=== PATIENT | male | born 1970 | race American Indian/Alaskan Native ===

== ENCOUNTER 2017-08-04 09:24 | Emergency (ER) | payer OTHER ==
--- NOTE | 2017-08-04 10:12 | ED PDOC ---
Arrival/HPI - General Historian: Patient, Spouse - History of Present Illness Time/Duration: < week Symptom Onset: Gradual Symptom Course: Worsening Quality: Stabbing Context: Sitting, Standing - General Chief Complaint: GI Problem Time Seen by Provider: 08/04/17 09:30 - History of Present Illness Narrative History of Present Illness (Text): 08/04/17 10:08 patient is a 47M with a PMH of COPD, GERD, Sciatica comes to the ED for three days of R. leg pain and bloody emesis. States that the leg pain started after he fell off the bed. He was able to ambulate after the injury and went to work the next day. He states the pain is similar to the pain he has when his sciatica is bothering him. Patient has also been complaining of abdominal pain accompanied by diarrhea and bloody emesis this morning. Patient states that the vomitus was first bloody, then yellow then follow by streaks of blood. Patient reports feeling fatigue as well as an episode of chest pain at prior to coming. No SOB. Denies any fever or chills. (James Wilks) Past Medical History - Provider Review Nursing Documentation Reviewed: Yes - Cardiac Hx Hypertension: Yes - Pulmonary Hx Respiratory Disorders: No - Neurological Hx Neurological Disorder: No - HEENT Hx HEENT Disorder: No - Renal Hx Renal Disorder: No - Endocrine/Metabolic Hx Endocrine Disorders: No - Hematological/Oncological Hx Blood Disorders: No - Integumentary Hx Dermatological Disorder: No - Musculoskeletal/Rheumatological Hx Musculoskeletal Disorders: Yes Other/Comment: sciatic nerve - Gastrointestinal Hx Gastrointestinal Disorders: No - Genitourinary/Gynecological Hx Genitourinary Disorders: No - Psychiatric Hx Psychophysiologic Disorder: No Hx Substance Use: No - Surgical History Other/Comment: right index finger amputee. Family/Social History - Physician Review Nursing Documentation Reviewed: Yes Family/Social History: Unknown Family HX Smoking Status: Current Some Days Smoker Hx Alcohol Use: No Hx Substance Use: No Allergies/Home Meds Allergies/Adverse Reactions: Allergies No Known Allergies Allergy (Verified 08/04/17 09:38) Home Medications: Home Meds Medication Instructions Recorded Confirmed Ibuprofen [Motrin Tab] 800 mg PO BID 08/04/17 08/04/17 Montelukast Sodium [Singulair] 10 mg PO DAILY 08/04/17 08/04/17 Naproxen [Naprosyn] 500 mg PO Q12 08/04/17 08/04/17 Omeprazole 40 mg PO DAILY 08/04/17 08/04/17 Valsartan [Diovan] 160 mg PO DAILY 08/04/17 08/04/17 hydroCHLOROthiazide [Microzide] 12.5 mg PO DAILY 08/04/17 08/04/17 Review of Systems - Review of Systems Constitutional: absent: Fatigue, Weight Change, Fevers Eyes: absent: Vision Changes ENT: Normal Respiratory: absent: SOB, Cough, Sputum, Wheezing Cardiovascular: Chest Pain. absent: Palpitations, Edema, Calf Pain, Syncope Gastrointestinal: Abdominal Pain, Diarrhea (no blood in the diarrhea), Vomiting , Hematemesis, Anorexia. absent: Constipation Genitourinary Male: Normal Musculoskeletal: Back Pain (travels down the back of the R. thigh and leg terminating at the right heal, sharp in nature) Skin: Normal Neurological: Normal Endocrine: Normal Hemo/Lymphatic: Normal Psychiatric: Normal Physical Exam Vital Signs Reviewed: Yes Temperature: Afebrile Blood Pressure: Normal Pulse: Regular Respiratory Rate: Normal Appearance: Positive for: Non-Toxic, Uncomfortable Pain Distress: Mild Mental Status: Positive for: Alert and Oriented X 3 - Systems Exam Head: Present: Atraumatic, Normocephalic Pupils: Present: PERRL Extroacular Muscles: Present: EOMI Conjunctiva: Present: Normal Mouth: Present: Moist Mucous Membranes Neck: Present: Normal Range of Motion Respiratory/Chest: Present: Clear to Auscultation, Good Air Exchange. No: Respiratory Distress Cardiovascular: Present: Regular Rate and Rhythm, Normal S1, S2. No: Murmurs Abdomen: Present: Tenderness (mild diffuse tenderness to palpation), Normal Bowel Sounds. No: Distention, Peritoneal Signs Rectal: Present: Normal Rectal Tone. No: Occult Blood, Rectal Tenderness, Gross Blood, Melena, Hemorrhoids, Fissures, Nodule/Mass/Lesions Back: Present: Normal Inspection. No: CVA Tenderness Upper Extremity: Present: Normal Inspection. No: Cyanosis, Edema Lower Extremity: Present: Normal Inspection, Normal ROM. No: Edema, Tenderness Skin: Present: Warm, Dry, Normal Color. No: Rashes Psychiatric: Present: Alert, Oriented x 3, Normal Insight, Normal Concentration Vital Signs Temp Pulse Resp BP Pulse Ox 08/04/17 13:00 65 18 135/65 97 08/04/17 11:57 68 18 138/69 97 08/04/17 09:38 98.7 F 71 18 144/71 97 08/04/17 09:37 98.7 F 71 19 144/71 97 Medical Decision Making ED Course and Treatment: 08/04/17 10:17 Patient is a 47M complaining of leg pain, bloody emesis, abdominal pain and one episode of chest pain prior to coming to ED * cxr, EKG, * CT abd/pel w/ IV contrast * cbc, cmp, mag, cardiac iso * protonix 40 iv * tylenol * NS bolus 08/04/17 12:27 * cxr, ekg, and CT were unremarkable * stool occult negative done by myself at bedside * trop is negative * Spoke with hospitalist. Given risk factors and patients episode of chest pain will admit to tele for observation 08/04/17 13:34 Patient decided to leave AMA. He was informed of the risks involved in leaving including hypovolemic shock, IN, respiratory failure and . (James Wilks) Patient seen and evaluated with medical laboratory assistant. Patient was examined by me with family at bedside. On exam he has right sided back pain worse with palpation and movement. States he had episodes of chest pain several days ago, none currently. Reports he vomited "handful of blood" prior to arrival. None noted with serial exams ion ED. CT reviewed labs and ekg reviewed. LIMITATIONS OF IMAGING STUDIES AND LABS reviewed with patient and family. It was strongly recommended to patient to be admitted to hospital for serial exams, cardiac monitoring, monitoring of reported vomiting blood. He is cv stable. NV intact. Neuro intact. Patient wishes to sign out against medical advice. He has been advised of risks in laymen's terms. I have discussed with patient risks in person with family, patient and family given opportunity to answer questions. (Clementina Douglas) - Lab Interpretations Lab Results: 08/04/17 10:25 08/04/17 10:25 Lab Results 08/04/17 10:25: PT 13.5 H, INR 1.17 H, APTT 31.0 08/04/17 10:25: Sodium 143, Potassium 3.4 L, Chloride 105, Carbon Dioxide 27, Anion Gap 14, BUN 14, Creatinine 1.2, Est GFR ( Amer) > 60, Est GFR (Non- Af Amer) > 60, Random Glucose 111 H, Calcium 10.1, Magnesium 2.4 H, Total Bilirubin 1.2, AST 31, ALT 25, Alkaline Phosphatase 80, Lactate Dehydrogenase 430, Total Creatine Kinase 208, Troponin I < 0.01, Total Protein 7.7, Albumin 4.1, Globulin 3.6, Albumin/Globulin Ratio 1.2 08/04/17 10:25: WBC 8.5, RBC 4.48, Hgb 13.6 L, Hct 40.6 L, MCV 90.6, MCH 30.4, MCHC 33.5, RDW 12.3, Plt Count 289, MPV 9.5, Gran % 81.2 H, Lymph % (Auto) 13.7 L, Jackson % (Auto) 4.8, Eos % (Auto) 0.1 L, Baso % (Auto) 0.2, Gran # 6.88 H, Lymph # (Auto) 1.2, Jackson # (Auto) 0.4, Eos # (Auto) 0.0, Baso # (Auto) 0.02 - RAD Interpretation Radiology Orders: 08/04/17 10:06 CXR [CHEST PORTABLE] [RAD] Stat 08/04/17 10:20 ABD & PELVIS IV CONTRAST ONLY [CT] Stat - Medication Orders Current Medication Orders: Discontinued Medications Acetaminophen (Tylenol 325mg Tab) 650 mg PO STAT STA Stop: 08/04/17 10:25 Last Admin: 08/04/17 10:29 Dose: 650 mg MAR Pain/Vitals Document 08/04/17 10:29 EQ (Rec: 08/04/17 10:29 EQ [id number]) Pain Reassessment Is This A Pain ReAssessment? No Sleep Is patient sleeping during reassessment? No Presence of Pain Presence of Pain Yes Sodium Chloride (Sodium Chloride 0.9%) 1,000 mls @ 999 mls/hr IV .Q1H1M STA Stop: 08/04/17 11:20 Last Admin: 08/04/17 10:30 Dose: 999 mls/hr eMAR Start Stop Document 08/04/17 10:30 EQ (Rec: 08/04/17 10:30 EQ [id number]) Intravenous Solution Start Date 03/29/18 Start Time 10:30 Ondansetron HCl (Zofran Inj) 4 mg IVP STAT STA Stop: 08/04/17 10:51 Last Admin: 08/04/17 11:01 Dose: 4 mg IVP Administration Document 08/04/17 11:01 EQ (Rec: 08/04/17 11:01 EQ [id number]) Charges for Administration # of IVP Administrations 1 Pantoprazole Sodium (Protonix Inj) 40 mg IVP STAT STA Stop: 08/04/17 10:21 Last Admin: 08/04/17 10:29 Dose: 40 mg IVP Administration Document 08/04/17 10:29 EQ (Rec: 08/04/17 10:29 EQ [id number]) Charges for Administration # of IVP Administrations 1 Potassium Chloride (Potassium Chloride Oral Soln) 40 meq PO STAT STA Stop: 08/04/17 10:50 Last Admin: 08/04/17 11:02 Dose: 40 meq - PA / BUSINESS PROCESS ENGINEER / Resident Statement / has reviewed & agrees with the documentation as recorded. / has examined the patient and agrees with the treatment plan. Disposition/Present on Arrival - Present on Arrival Any Indicators Present on Arrival: No History of DVT/PE: No History of Uncontrolled Diabetes: No Urinary Catheter: No History of Decub. Ulcer: No History Surgical Site Infection Following: None - Disposition Have Diagnosis and Disposition been Completed?: Yes Disposition Time: 12:29 Patient Plan: Other (ama) - Disposition Diagnosis: Chest pain, Hemoptysis Disposition: AGAINST MEDICAL ADVICE Condition: GUARDED Referrals: Augusto Vargas MD [Primary Care Provider] - Follow up with primary
[2017-08-04] MEDS ORDERED: Sodium Chloride 0.9% 1,000 ML IV STA (10:20)
--- NOTE | 2017-08-04 10:28 | RAD ---
HISTORY: Bloody emesis COMPARISON: No prior. FINDINGS: LUNGS: No active pulmonary disease. PLEURA: No significant pleural effusion identified, no pneumothorax apparent. CARDIOVASCULAR: Normal. OSSEOUS STRUCTURES: No significant abnormalities. VISUALIZED UPPER ABDOMEN: Normal. OTHER FINDINGS: None. IMPRESSION: No active disease.
[2017-08-04 10:34] LABS: BASO # 0.02 K/mm3 (0.0-2.0); BASO % 0.2 % (0.0-3.0); EOS % 0.1 % (1.5-5.0); GRAN # 6.88 (1.4-6.5); GRAN % 81.2 % (50.0-68.0); HEMOGLOBIN 13.6 g/dL (14.0-18.0); LYMPH # 1.2 (1.2-3.4); LYMPH % 13.7 % (22.0-35.0); MEAN CELL VOLUME 90.6 fl (80.0-105.0); MEAN CORPUSCULAR HEMOGLOBIN 30.4 pg (25.0-35.0); MEAN CORPUSCULAR HGB CONC 33.5 g/dl (31.0-37.0); MEAN PLATELET VOLUME 9.5 fl (7.0-11.0); MONO # 0.4 (0.1-0.6); MONO % 4.8 % (1.0-6.0); RBC 4.48 10^6/uL (3.5-6.1); RED CELL DISTRIBUTION WIDTH 12.3 % (11.5-14.5); WHITE BLOOD COUNT 8.5 10^3/ul (4.5-11.0)
[2017-08-04 10:44] LABS: ALB/GLOB RATIO 1.2 (1.1-1.8); ALBUMIN 4.1 g/dL (3.0-4.8); ALT/SGPT 25 U/L (7-56); AST/SGOT 31 U/L (17-59); BLOOD UREA NITROGEN 14 mg/dL (7-21); CALCIUM 10.1 mg/dL (8.4-10.5); GFR AFRICAN-AMERICAN > 60; GFR NON-AFRICAN AMERICAN > 60
[2017-08-04 10:47] LABS: INR 1.17 (0.93-1.08); PROTHROMBIN TIME 13.5 SECONDS (9.4-12.5)
[2017-08-04] MEDS ORDERED: Potassium Chloride 40 mEq/30 ml LIQ UD PO STA (10:49)
[2017-08-04 10:56] LABS: TROPONIN I < 0.01 ng/mL
--- NOTE | 2017-08-04 11:58 | CT ---
PROCEDURE: CT Abdomen and Pelvis with contrast HISTORY: abdominal pain, bloody emesis, diarrhea COMPARISON: None. TECHNIQUE: Contrast dose: 150 cc of Omni 350 Radiation dose: Total exam DLP = 1080 mGy-cm. This CT exam was performed using one or more of the following dose reduction techniques: Automated exposure control, adjustment of the mA and/or kV according to patient size, and/or use of iterative reconstruction technique. FINDINGS: LOWER THORAX: Unremarkable. LIVER: Unremarkable. No gross lesion or ductal dilatation. GALLBLADDER AND BILE DUCTS: Unremarkable. PANCREAS: Unremarkable. No gross lesion or ductal dilatation. SPLEEN: Unremarkable. ADRENALS: Unremarkable. No mass. KIDNEYS AND URETERS: Unremarkable. No hydronephrosis. No solid mass. VASCULATURE: Unremarkable. No aortic aneurysm. BOWEL: Unremarkable. No obstruction. No gross mural thickening. APPENDIX: Normal appendix. PERITONEUM: Unremarkable. No free fluid. No free air. LYMPH NODES: Unremarkable. No enlarged lymph nodes. BLADDER: Unremarkable. REPRODUCTIVE: Unremarkable. BONES: No acute fracture. OTHER FINDINGS: None. IMPRESSION: No acute findings
[2017-08-04 12:40] VITALS: RESP 18; TEMP 98.7; O2SAT 97; BMI 36.9
[2017-08-04 13:33] VITALS: BP 135/65; PULSE 65
--- NOTE | 2017-08-04 18:25 | CARD ---
APPROVED REPORT EKG Measurement Heart [id number] <Conclusion> Sinus rhythm with short [place] with premature supraventricular complexes Otherwise normal ECG
== END 2017-08-04 13:37 | disposition left against medical advice (07) ==
LOC: ED 09:24 → MERGE 09:24 → ERH 12:47 → UNDOADMOB 12:47 → ERH 13:15 → ED 13:37
DX: R04.2 Hemoptysis (principal); R07.9 Chest pain, unspecified; I10 Essential (primary) hypertension; F17.200 Nicotine dependence, unspecified, uncomplicated
CPT/HCPCS: 71045; 74177; 80053; 82550; 83615; 83735; 84484; 85025; 85610; 85730; 93005; 96374; 96375; 99283; C9113; J2405; J3480; J7040; Q9967

== ENCOUNTER 2018-04-28 17:09 | Emergency (ER) | payer MEDICAID, OTHER ==
[2018-04-28 17:09] VITALS: BMI 36.9
[2018-04-28 17:21] VITALS: TEMP 98.6
[2018-04-28] MEDS ORDERED: Albuterol-Ipratrop 3 mg / 0.5 (3 ml) UD IH STA (17:27)
--- NOTE | 2018-04-28 17:27 | ED PDOC ---
Arrival/HPI - General Chief Complaint: Shortness Of Breath Time Seen by Provider: 04/28/18 17:11 Historian: Patient - History of Present Illness Narrative History of Present Illness (Text): A 47 year old male smoker, whose past medical history includes COPD (no home o2) and sciatica, presents to the emergency department complaining of shortness of breath since 1 week ago. Patient reports his symptoms have become progressively worse this past week and notes he has taken his inhaler with some relief. Patient reports pain feels worse than previous COPD exacerbation, but overall feels like his COPD. Patient admits to smoking cigarettes today. Patient denies any fever, chills, chest pain, diarrhea, nausea, vomiting, urinary symptoms, back pain, neck pain, headache, or any other complaints. PMD: Dr. Vargas Time/Duration: 1 week Symptom Onset: Gradual Symptom Course: Unchanged Activities at Onset: Light Context: Home Past Medical History - Provider Review Nursing Documentation Reviewed: Yes - Cardiac Hx Hypertension: Yes - Pulmonary Hx Respiratory Disorders: No - Neurological Hx Neurological Disorder: No - HEENT Hx HEENT Disorder: No - Renal Hx Renal Disorder: No - Endocrine/Metabolic Hx Endocrine Disorders: No - Hematological/Oncological Hx Blood Disorders: No - Integumentary Hx Dermatological Disorder: No - Musculoskeletal/Rheumatological Hx Musculoskeletal Disorders: Yes Other/Comment: sciatic nerve - Gastrointestinal Hx Gastrointestinal Disorders: No - Genitourinary/Gynecological Hx Genitourinary Disorders: No - Psychiatric Hx Psychophysiologic Disorder: No Hx Substance Use: No - Surgical History Other/Comment: right index finger amputee. - Anesthesia Hx Anesthesia: Yes Hx Anesthesia Reactions: No Hx Malignant Hyperthermia: No Family/Social History - Physician Review Nursing Documentation Reviewed: Yes Family/Social History: No Known Family HX Smoking Status: Current Some Days Smoker Hx Alcohol Use: No Hx Substance Use: No Substance used: heroin, last use 2014 Allergies/Home Meds Allergies/Adverse Reactions: Allergies No Known Allergies Allergy (Unverified 08/10/16 15:40) Home Medications: Home Meds Medication Instructions Recorded Confirmed RX: Diclofenac 1 tab PO DAILY 08/10/16 08/10/16 RX: Gabapentin [Neurontin] 1 tab PO DAILY 08/10/16 08/10/16 RX: Omeprazole 1 tab PO DAILY 08/10/16 08/10/16 Valsartan/Hydrochlorothiazide 1 tab PO DAILY 08/10/16 08/10/16 [Valsartan-Hctz 160-12.5 mg Tab] Ibuprofen [Motrin Tab] 800 mg PO BID 08/04/17 08/04/17 Montelukast Sodium [Singulair] 10 mg PO DAILY 08/04/17 08/04/17 Naproxen [Naprosyn] 500 mg PO Q12 08/04/17 08/04/17 RX: Omeprazole 40 mg PO DAILY 08/04/17 08/04/17 RX: hydroCHLOROthiazide [Microzide] 12.5 mg PO DAILY 08/04/17 08/04/17 Valsartan [Diovan] 160 mg PO DAILY 08/04/17 08/04/17 Review of Systems - Physician Review All systems were reviewed & negative as marked: Yes - Review of Systems Constitutional: absent: Fevers, Night Sweats Respiratory: SOB Cardiovascular: absent: Chest Pain Gastrointestinal: absent: Diarrhea, Nausea, Vomiting Musculoskeletal: absent: Back Pain, Neck Pain Neurological: absent: Headache, Dizziness Physical Exam Vital Signs Reviewed: Yes Vital Signs Temp Pulse Resp BP Pulse Ox 04/28/18 17:20 98.6 F 86 18 177/83 H 98 Temperature: Afebrile Blood Pressure: Hypertensive Pulse: Regular Respiratory Rate: Normal Appearance: Positive for: Well-Appearing, Non-Toxic Mental Status: Positive for: Alert and Oriented X 3 - Systems Exam Head: Present: Atraumatic, Normocephalic Pupils: Present: PERRL Extroacular Muscles: Present: EOMI Conjunctiva: Present: Normal Respiratory/Chest: Present: Good Air Exchange, Wheezes (mild b/l ). No: Respiratory Distress, Accessory Muscle Use Cardiovascular: Present: Regular Rate and Rhythm, Normal S1, S2. No: Murmurs Abdomen: No: Tenderness, Distention, Peritoneal Signs Back: Present: Normal Inspection. No: CVA Tenderness Upper Extremity: Present: Normal Inspection. No: Cyanosis, Edema Lower Extremity: Present: Swelling (+1 bilateral leg swelling) Neurological: Present: GCS=15, CN II-XII Intact, Speech Normal Skin: Present: Warm, Dry, Normal Color. No: Rashes Psychiatric: Present: Alert, Oriented x 3, Normal Insight, Normal Concentration Medical Decision Making ED Course and Treatment: 04/28/18 17:30 Impression: 47 year old male presenting to the emergency department with shortness of breath. Well appearing, with mild wheezing on exam. No pain on palpation. Speaking in full sentences without issue in NAD. B/L LE swelling 1+, pt notes this is chronic. ?CHF vs COPD. Will seek labs and imaging. Low pretest wells: will seek dimer. Plan: -- EKG -- Labs -- CBC -- D Dimer -- Chest X-ray -- Duoneb -- Reassess and disposition Prior Visits: Notes and results from previous visits were reviewed. Progress Notes: 04/28/18 17:31 EKG: Ordered, reviewed, and independently interpreted the EKG. Rate : 73 BPM Rhythm : NSR Interpretation : No ST-segment elevations or depressions, no T-wave inversions, normal intervals. Comparison : No previous EKG for comparison. 04/28/18 19:14 Procedure: Chest X-ray Time: 04/28/2018 18:46:42 Dictator: Glendy Simon MD Impression: No focal consolidation identified. 04/28/18 19:27 Lungs improved, CTA labs unremarkable clear for d/c home w/ f/u and return indications. Pt notes he has inhaler at home - Scribe Statement The provider has reviewed the documentation as recorded by the Scribe Sofía Langford All medical record entries made by the Scribe were at my direction and personally dictated by me. I have reviewed the chart and agree that the record accurately reflects my personal performance of the history, physical exam, medical decision making, and the department course for this patient. I have also personally directed, reviewed, and agree with the discharge instructions and disposition. Disposition/Present on Arrival - Present on Arrival Any Indicators Present on Arrival: No History of DVT/PE: No History of Uncontrolled Diabetes: No Urinary Catheter: No History of Decub. Ulcer: No History Surgical Site Infection Following: None - Disposition Have Diagnosis and Disposition been Completed?: Yes Diagnosis: COPD (chronic obstructive pulmonary disease) Disposition: HOME/ ROUTINE Disposition Time: 19:27 Condition: GOOD Discharge Instructions (ExitCare): Chronic Obstructive Pulmonary Disease (COPD), Including Emphysema Additional Instructions: LUZMA CALDERON, thank you for letting us take care of you today. Your provider was Tre Douglas and you were treated for cant breath. The emergency medical care you received today was directed at your acute symptoms. If you were prescribed any medication, please fill it and take as directed. It may take several days for your symptoms to resolve. Return to the Emergency Department if your symptoms worsen, do not improve, or if you have any other problems. Please contact your doctor or call one of the physicians/clinics you have been referred to that are listed on the Patient Visit Information form that is included in your discharge packet. Bring any paperwork you were given at discharge with you along with any medications you are taking to your follow up visit. Our treatment cannot replace ongoing medical care by a primary care provider outside of the emergency department. Thank you for allowing the [facility] team to be part of your care today. If you had an X-Ray or CT scan: A Radiologist will review the ED reading if any change in treatment is needed we will contact you. If you had a blood, urine, or wound culture: It will take several days for the results, if any change in treatment is needed we will contact you. If you had an STI test: It will take 48 hours for the results. Please call after 1 week if you have not heard back. Prescriptions: Albuterol 0.5% [Albuterol 0.5% Inhal Sonya (2.5 mg/0.5 ml) UD] 0.5 ml IH Q3H PRN 90 Days #20 neb PRN Reason: Shortness Of Breath Mask, Face [Nebulizer Aerosol Mask Adult] 1 dev XX PRN PRN #1 dev PRN Reason: Shortness Of Breath RX: Nebulizer [Compact Compressor Nebulizer] 1 dev XX PRN PRN #1 dev PRN Reason: Shortness Of Breath predniSONE [Prednisone] 40 mg PO DAILY 5 Days #10 tab Referrals: Yohan Vargas MD [Staff Provider] - Follow up with primary Augusto Vargas MD [Family Provider] - Follow up with primary Karl Barros MD [Staff Provider] - Follow up with primary Forms: [employer] ([employer])
[2018-04-28 18:07] VITALS: O2SAT 99
[2018-04-28 18:12] LABS: BASO # 0.05 K/mm3 (0.0-2.0); EOS # 0.1 (0.0-0.7); EOS % 2.3 % (1.5-5.0); GRAN # 3.19 (1.4-6.5); GRAN % 61.8 % (50.0-68.0); LYMPH # 1.5 (1.2-3.4); LYMPH % 28.3 % (22.0-35.0); MEAN CELL VOLUME 92.4 fl (80.0-105.0); MEAN CORPUSCULAR HEMOGLOBIN 29.3 pg (25.0-35.0); MEAN CORPUSCULAR HGB CONC 31.7 g/dl (31.0-37.0); MEAN PLATELET VOLUME 10.1 fl (7.0-11.0); MONO # 0.3 (0.1-0.6); MONO % 6.6 % (1.0-6.0); RBC 4.09 10^6/uL (3.5-6.1); RED CELL DISTRIBUTION WIDTH 12.5 % (11.5-14.5); WHITE BLOOD COUNT 5.2 10^3/uL (4.5-11.0)
[2018-04-28 18:17] LABS: ALB/GLOB RATIO 1.3 (1.1-1.8); ALBUMIN 4.2 g/dL (3.0-4.8); ALT/SGPT 36 U/L (7-56); AST/SGOT 40 U/L (17-59); BLOOD UREA NITROGEN 18 mg/dL (7-21); CALCIUM 9.1 mg/dL (8.4-10.5); GFR NON-AFRICAN AMERICAN > 60
[2018-04-28 18:28] LABS: B-TYPE NATRIURETIC PEPTIDE 112 pg/mL (0-450); TROPONIN I < 0.01 ng/mL
--- NOTE | 2018-04-28 18:50 | RAD ---
HISTORY: sob COMPARISON: Chest x-ray performed 08/04/17 TECHNIQUE: Chest PA and lateral FINDINGS: Examination limited by habitus. LUNGS: No focal consolidation. Please note that chest x-ray has limited sensitivity for the detection of pulmonary masses. PLEURA: No significant pleural effusion identified. No definite pneumothorax . CARDIOVASCULAR: Heart size appears within normal limits. Ectatic aorta. Atherosclerotic calcifications. OSSEOUS STRUCTURES: Degenerative changes of the spine. VISUALIZED UPPER ABDOMEN: Unremarkable. OTHER FINDINGS: None. IMPRESSION: No focal consolidation identified.
[2018-04-28 19:48] VITALS: BP 135/71; PULSE 78; RESP 18
--- NOTE | 2018-04-29 09:12 | CARD ---
APPROVED REPORT Date of service: 04/28/2018 EKG Measurement Heart [id number] <Conclusion> Normal sinus rhythm LVH by voltage
== END 2018-04-28 19:45 | disposition home or self-care (01) ==
LOC: ED 17:09
DX: J44.9 Chronic obstructive pulmonary disease, unspecified (principal); I10 Essential (primary) hypertension; F17.210 Nicotine dependence, cigarettes, uncomplicated

== ENCOUNTER 2018-05-16 18:05 | Emergency (ER) | payer MEDICAID ==
[2018-05-16 18:21] VITALS: BMI 38.7
[2018-05-16 18:30] VITALS: O2SAT 97
[2018-05-16] MEDS ORDERED: DiphenhydrAMINE 50 mg/ml Inj IVP STA (18:42)
[2018-05-16] MEDS ORDERED: Sodium Chloride 0.9% 1,000 ML IV STA (18:42)
--- NOTE | 2018-05-16 18:47 | ED PDOC ---
Arrival/HPI - General Chief Complaint: Headache Historian: Patient - History of Present Illness Narrative History of Present Illness (Text): 05/16/18 18:45 47 y/o male, pmh including htn and copd, nkda, c/o headache and dizziness x 2 days. Pt. stated that he has been feeling headache with room spinning dizziness x 2 days, no nausea or vomiting, aggravated by walking, stated that he had a syncope episode today around 5pm when walking back to his car, drove himself to the ER, no numbness or tingling, no chest pain or shortness of breath, no extremity or facial weakness, no other medical or psychological complaints. Past Medical History - Provider Review Nursing Documentation Reviewed: Yes - Infectious Disease Hx of Infectious Diseases: None - Cardiac Hx Hypertension: Yes - Pulmonary Hx Chronic Obstructive Pulmonary Disease (COPD): Yes - Neurological Hx Neurological Disorder: No - HEENT Hx HEENT Disorder: No - Renal Hx Renal Disorder: No - Endocrine/Metabolic Hx Endocrine Disorders: No - Hematological/Oncological Hx Blood Disorders: No - Integumentary Hx Dermatological Disorder: No - Musculoskeletal/Rheumatological Hx Musculoskeletal Disorders: Yes Other/Comment: sciatic nerve - Gastrointestinal Hx Gastroesophageal Reflux: Yes - Genitourinary/Gynecological Hx Genitourinary Disorders: No - Psychiatric Hx Psychophysiologic Disorder: No Hx Substance Use: Yes - Surgical History Other/Comment: right index finger amputee. - Anesthesia Hx Anesthesia: Yes Hx Anesthesia Reactions: No Hx Malignant Hyperthermia: No Family/Social History - Physician Review Nursing Documentation Reviewed: Yes Family/Social History: Unknown Family HX Smoking Status: Heavy Smoker > 10 Cigarettes Daily Hx Alcohol Use: No Hx Substance Use: Yes Substance used: heroine, last use 2014 Allergies/Home Meds Allergies/Adverse Reactions: Allergies No Known Allergies Allergy (Unverified 08/10/16 15:40) Home Medications: Home Meds Medication Instructions Recorded Confirmed Ibuprofen [Motrin Tab] 800 mg PO BID 08/04/17 05/16/18 Montelukast Sodium [Singulair] 10 mg PO DAILY 08/04/17 05/16/18 Omeprazole 40 mg PO DAILY 08/04/17 05/16/18 Albuterol HFA [Ventolin HFA 90 1 puff IH PRN PRN 05/16/18 05/16/18 mcg/actuation (8 g)] Baclofen [Lioresal] 1 tab PO TID 05/16/18 05/16/18 Fluticasone/Salmeterol 250/50 1 puff IH DAILY 05/16/18 05/16/18 [Advair Diskus 250/50] Lisinopril [Zestril] 1 tab PO DAILY 05/16/18 05/16/18 Metoprolol Succinate [Kapspargo 1 tab PO DAILY 05/16/18 05/16/18 Sprinkle] Umeclidinium [place] [Incruse 1 puff IH DAILY 05/16/18 05/16/18 Ellipta] Review of Systems - Review of Systems Constitutional: absent: Fatigue, Fevers Eyes: absent: Vision Changes ENT: absent: Hearing Changes Respiratory: absent: SOB, Cough Cardiovascular: absent: Chest Pain Gastrointestinal: absent: Abdominal Pain, Diarrhea, Nausea, Vomiting Neurological: Headache, Dizziness. absent: Focal Weakness, Gait Changes Hemo/Lymphatic: absent: Adenopathy, Easy Bleeding Psychiatric: absent: Anxiety, Depression, Suicidal Ideation Physical Exam Vital Signs Reviewed: Yes Vital Signs Temp Pulse Resp BP Pulse Ox 05/16/18 18:30 98.6 F 71 18 160/97 H 97 Temperature: Afebrile Blood Pressure: Normal Pulse: Regular Respiratory Rate: Normal Appearance: Positive for: Well-Appearing Pain Distress: Moderate Mental Status: Positive for: Alert and Oriented X 3 - Systems Exam Head: Present: Atraumatic, Normocephalic, Other (no temporal artery tenderness). No: Tenderness, Contusion, Swelling, Ecchymosis, Abrasion, Laceration Pupils: Present: PERRL Extroacular Muscles: Present: EOMI Conjunctiva: Present: Normal Ears: Present: NORMAL TM, Normal Canal. No: Erythema Mouth: Present: Moist Mucous Membranes Neck: Present: Normal Range of Motion Respiratory/Chest: Present: Clear to Auscultation, Good Air Exchange. No: Respiratory Distress, Accessory Muscle Use Cardiovascular: Present: Regular Rate and Rhythm, Normal S1, S2. No: Murmurs Abdomen: No: Tenderness, Distention, Peritoneal Signs, Rebound, Guarding Back: Present: Normal Inspection. No: CVA Tenderness, Midline Tenderness, Paraspinal Tenderness Upper Extremity: Present: Normal Inspection. No: Cyanosis, Edema Lower Extremity: Present: Normal Inspection. No: Edema Neurological: Present: GCS=15, CN II-XII Intact, Speech Normal, Motor Func Grossly Intact, Memory Normal Skin: Present: Warm, Dry, Normal Color. No: Rashes Psychiatric: Present: Alert, Oriented x 3, Normal Insight, Normal Concentration Medical Decision Making ED Course and Treatment: 05/16/18 18:47 -labs -CT head -ekg -IVF/meclizine/reglan/benadryl -Observe and reassess 05/16/18 20:16 -EKG: SR @ 70 BPM with PVC, no ST elevation or depression, no T wave inversion. -CT head No acute intracranial abnormality. -Labs show no acute findings except CPK 429 (IVF ordered) -Mg within normal limit -Trop within normal limit -Ammonia is 35, lactulose ordered -Will admit 05/16/18 22:10 -All labs and radiology results discussed with the patient, he stated that he is asymptomatic, refused to be admitted, request to sign the AMA paper. AMA AMA ER The patient refuses to stay in the Emergency Room (ER) to continue the care and wishes to leave the emergency department against my medical advice. Patient was told that staying in the ER is necessary and a full explanation of the reasons why was given, and understood by the patient with alert and oriented x4. The risk of leaving were explained in laymans term and including but not limited to cardiac arrythmia, coronary artery disease, pulmonary embolism, menegitis, cerebritis, stroke, cancer, anemia, organ failures, fall, syncope, cardiopulmonary disease, neurological disease, pain, worsening of condition, permanent disability and from an undiagnosed or untreated condition. The patient accepts these risks, and is in my judgment is competent and capable of understanding the clinical situation and explanation of the risk of leaving. The patient is able to verbally repeated me back the above explained risks and benefits back to me, and verbally expressed understanding. Patient was given the opportunity to ask questions and change mind. The patient was instructed regarding the best care for the present symptoms, and to follow up as soon as possible with the primary care doctor including specialist or return to the emergency department at any time for continuing care. You declined to be admitted to the hospital. You are given meclizine and tylenol, please follow up with your own pmd/neurologist/customer service engineer today, return to the ER if you wishes to continue the medical care. - RAD Interpretation Radiology Orders: 05/16/18 18:42 HEAD W/O CONTRAST [CT] Stat EXAM: CT Head without Intravenous Contrast. CLINICAL HISTORY: HEADACHE x 2DAYS TECHNIQUE: Axial computed tomography images of the head/brain without intravenous contrast. 913.20 mGy-cm COMPARISON: None provided. FINDINGS: BRAIN No acute intraparenchymal hemorrhage. No mass lesion. No CT evidence for acute territorial infarct. No midline shift or extra-axial collections. VENTRICLES: No hydrocephalus. ORBITS: The orbits are unremarkable. SINUSES AND MASTOIDS: The paranasal sinuses and mastoid air cells are clear. BONES: No fracture. SOFT TISSUES: Unremarkable. IMPRESSION: No acute intracranial abnormality. Electronically signed on May 16, 2018 9:03:06 PM EST by: James Greene M.D., ЕКАТЕРИНА Certified By [employer] & [employer] Fellowship Trained MRI and CT Specialist Clinical Applications Manager: Radiologist - EKG Interpretation EKG Interpretation (Text): 05/16/18 19:14 SR @ 70 BPM with PVC, no ST elevation or depression, no T wave inversion. Interpreted by ED Physician: Yes Type: 12 lead EKG Comparison: Com.w/previous EKG - Medication Orders Current Medication Orders: Diphenhydramine HCl (Benadryl) 50 mg IVP STAT STA Stop: 05/16/18 18:43 Sodium Chloride (Sodium Chloride 0.9%) 1,000 mls @ 999 mls/hr IV .Q1H1M STA Stop: 05/16/18 19:42 Metoclopramide HCl (Reglan) 10 mg IVP STAT STA Stop: 05/16/18 18:43 - PA / ASSEMBLY LINE MACHINE OPERATOR / Resident Statement /DO has reviewed & agrees with the documentation as recorded. Disposition/Present on Arrival - Present on Arrival Any Indicators Present on Arrival: No History of DVT/PE: No History of Uncontrolled Diabetes: No Urinary Catheter: No History of Decub. Ulcer: No History Surgical Site Infection Following: None - Disposition Have Diagnosis and Disposition been Completed?: Yes Diagnosis: Syncope, Headache Disposition: AGAINST MEDICAL ADVICE Disposition Time: 21:55 Patient Problems: Current Active Problems Problem Status Onset Headache Acute Syncope Acute Condition: IMPROVED Discharge Instructions (ExitCare): Syncope (ED) Additional Instructions: You declined to be admitted to the hospital. You are given meclizine and tylenol, please follow up with your own pmd/neurologist/customer service engineer today, return to the ER if you wishes to continue the medical care. Prescriptions: Acetaminophen [Pain Reliever] 500 mg PO QID PRN #30 tablet PRN Reason: Other Meclizine [Meclizine*] 25 mg PO Q6 #30 tab Referrals: Augusto Vargas MD [Primary Care Provider] - Follow up with primary Josemanuel Townsend MD [Staff Provider] - Follow up with primary Mauri Hussein MD [Staff Provider] - Follow up with primary Forms: [employer] ([place]), WORK NOTE
[2018-05-16 19:03] LABS: BASO # 0.03 K/mm3 (0.0-2.0); BASO % 0.5 % (0.0-3.0); EOS % 0.6 % (1.5-5.0); GRAN # 5.33 (1.4-6.5); GRAN % 84.5 % (50.0-68.0); HEMOGLOBIN 12.7 g/dL (14.0-18.0); LYMPH # 0.7 (1.2-3.4); LYMPH % 11.7 % (22.0-35.0); MEAN CELL VOLUME 91.1 fl (80.0-105.0); MEAN CORPUSCULAR HEMOGLOBIN 29.6 pg (25.0-35.0); MEAN CORPUSCULAR HGB CONC 32.5 g/dl (31.0-37.0); MEAN PLATELET VOLUME 10.4 fl (7.0-11.0); MONO # 0.2 (0.1-0.6); MONO % 2.7 % (1.0-6.0); RBC 4.29 10^6/uL (3.5-6.1); RED CELL DISTRIBUTION WIDTH 12.4 % (11.5-14.5); WHITE BLOOD COUNT 6.3 10^3/uL (4.5-11.0)
[2018-05-16 19:28] LABS: ALB/GLOB RATIO 1.4 (1.1-1.8); ALBUMIN 4.4 g/dL (3.0-4.8); ALT/SGPT 37 U/L (7-56); AST/SGOT 35 U/L (17-59); BLOOD UREA NITROGEN 12 mg/dL (7-21); CALCIUM 9.7 mg/dL (8.4-10.5); GFR NON-AFRICAN AMERICAN > 60
[2018-05-16 19:33] LABS: TROPONIN I < 0.01 ng/mL
[2018-05-16 19:43] LABS: CK MB% 1.5 % (2.5-3.0); CK-MB 6.5 ng/mL (0.0-3.6)
[2018-05-16 20:31] VITALS: TEMP 98.2
[2018-05-17 04:45] VITALS: BP 145/74; PULSE 72; RESP 18
--- NOTE | 2018-05-17 08:53 | CT ---
Date of service: 05/16/2018 PROCEDURE: CT HEAD WITHOUT CONTRAST. HISTORY: headache x 2 days. COMPARISON: None available. TECHNIQUE: Axial computed tomography images were obtained through the head/brain without intravenous contrast. Radiation dose: Total exam DLP = 913.2 mGy-cm. This CT exam was performed using one or more of the following dose reduction techniques: Automated exposure control, adjustment of the mA and/or kV according to patient size, and/or use of iterative reconstruction technique. FINDINGS: HEMORRHAGE: No intracranial hemorrhage. BRAIN: No mass effect or edema. No atrophy or chronic microvascular ischemic changes. VENTRICLES: Unremarkable. No hydrocephalus. CALVARIUM: Unremarkable. PARANASAL SINUSES: Unremarkable as visualized. No significant inflammatory changes. MASTOID AIR CELLS: Unremarkable as visualized. No inflammatory changes. OTHER FINDINGS: The report concurs with the preliminary [facility] report IMPRESSION: No acute intracranial findings
--- NOTE | 2018-05-17 18:30 | CARD ---
APPROVED REPORT Date of service: 05/16/2018 EKG Measurement Heart [id number] <Conclusion> Sinus rhythm with frequent premature ventricular complexes Possible Left atrial enlargement Left ventricular hypertrophy Abnormal ECG
== END 2018-05-16 22:30 | disposition left against medical advice (07) ==
LOC: ED 18:05
DX: R51 Headache (principal); R55 Syncope and collapse; I10 Essential (primary) hypertension; F17.210 Nicotine dependence, cigarettes, uncomplicated
CPT/HCPCS: 70450; 80053; 82140; 82550; 82553; 82948; 84484; 85025; 93005; 96361; 96374; 96375; 99284; J1200; J2765; J7030

== ENCOUNTER 2018-07-27 20:27 | Emergency (ER) | payer MEDICAID ==
[2018-07-27 20:35] VITALS: BMI 38.6
[2018-07-27 20:44] VITALS: BP 128/84; PULSE 97; RESP 18; TEMP 98.1; O2SAT 97
--- NOTE | 2018-07-27 21:03 | ED PDOC ---
Arrival/HPI - General Chief Complaint: Upper Extremity Problem/Injury Time Seen by Provider: 07/27/18 20:33 Historian: Patient - History of Present Illness Narrative History of Present Illness (Text): 07/27/18 21:01 48 year old male, whose past medical history includes COPD, GERD, and sciatica, presents to the emergency department complaining of tingling to hands, for 2 days. Patient states he woke up one morning with a stiff neck and some tingling in his fingers. Patient informs tingling progressively moved up left arm to left shoulder. Patient also informs of some pain in his left ankle, to the back of the ankle. Patient denies any fevers, chills, headache, dizziness, chest pain, shortness of breath, cough, abdominal pain, nausea, vomiting, diarrhea, or any other complaints. PMD: Dr. Vargas Time/Duration: < week (2 days) Symptom Onset: Gradual Symptom Course: Unchanged Quality: Other (tingling) Activities at Onset: Light Context: Home Past Medical History - Provider Review Nursing Documentation Reviewed: Yes - Infectious Disease Hx of Infectious Diseases: None - Cardiac Hx Hypertension: Yes - Pulmonary Hx Chronic Obstructive Pulmonary Disease (COPD): Yes - Neurological Hx Neurological Disorder: No - HEENT Hx HEENT Disorder: No - Renal Hx Renal Disorder: No - Endocrine/Metabolic Hx Endocrine Disorders: No - Hematological/Oncological Hx Blood Disorders: No - Integumentary Hx Dermatological Disorder: No - Musculoskeletal/Rheumatological Hx Musculoskeletal Disorders: Yes Hx Back Pain: Yes Other/Comment: sciatic nerve - Gastrointestinal Hx Gastroesophageal Reflux: Yes - Genitourinary/Gynecological Hx Genitourinary Disorders: No - Psychiatric Hx Psychophysiologic Disorder: No Hx Substance Use: Yes - Surgical History Other/Comment: right index finger amputee. - Anesthesia Hx Anesthesia: Yes Hx Anesthesia Reactions: No Hx Malignant Hyperthermia: No Family/Social History - Physician Review Nursing Documentation Reviewed: Yes Family/Social History: No Known Family HX Smoking Status: Heavy Smoker > 10 Cigarettes Daily Hx Alcohol Use: No Hx Substance Use: Yes Substance used: heroine, last use 2014 Allergies/Home Meds Allergies/Adverse Reactions: Allergies No Known Allergies Allergy (Unverified 08/10/16 15:40) Home Medications: Home Meds Medication Instructions Recorded Confirmed Ibuprofen [Motrin Tab] 800 mg PO BID 08/04/17 07/27/18 Omeprazole 40 mg PO DAILY 08/04/17 07/27/18 Baclofen [Lioresal] 1 tab PO TID 05/16/18 07/27/18 Fluticasone/Salmeterol 250/50 1 puff IH DAILY 05/16/18 07/27/18 [Advair Diskus 250/50] Lisinopril [Zestril] 20 mg PO DAILY 05/16/18 07/27/18 Metoprolol Succinate [Kapspargo 1 tab PO DAILY 05/16/18 07/27/18 Sprinkle] Umeclidinium [place] [Incruse 1 puff IH DAILY 05/16/18 07/27/18 Ellipta] Acetaminophen/Butalbital/Caf 1 tab PO PRN PRN 07/27/18 07/27/18 [Fioricet] Cyclobenzaprine [Flexeril] 1 tab PO Q8H PRN 07/27/18 07/27/18 Montelukast Sodium [Singulair] 1 tab PO HS 07/27/18 07/27/18 NIFEdipine ER [Procardia XL] 1 tab PO DAILY 07/27/18 07/27/18 hydroCHLOROthiazide [Hydrodiuril] 1 tab PO DAILY 07/27/18 07/27/18 Review of Systems - Physician Review All systems were reviewed & negative as marked: Yes - Review of Systems Constitutional: absent: Fevers, Night Sweats Respiratory: absent: SOB, Cough Cardiovascular: absent: Chest Pain Gastrointestinal: absent: Abdominal Pain, Diarrhea, Nausea, Vomiting Musculoskeletal: Neck Pain, Other (Tingling at fingers, and left arm). absent: Back Pain Neurological: absent: Headache, Dizziness Physical Exam - Physical Exam Narrative Physical Exam (Text): 07/27/18 21:41 Gen: VS reviewed, alert, well developed, well nourished, nontoxic, mild distress. ENT: normal pharynx. Eye: EOMI, PERRL. Neck: no JVD, supple, no adenopathy, limited lateral rotation secondary to pain which patient states has improved from initial neck pain event.. CV: regular rate, regular rhythm, no rubs, no murmur, no gallops, S1, S2, pulses equal and strong. Pulm: no distress, clear to auscultation, no wheeze, no rhonchi, breath sounds equal, no rales. Abd: soft, nontender, no guarding, no rebound, no rigidity, normal bowel sounds. Ext: focal tenderness to distal left achilles, with good active ROM at ankle. Skin: good color, no rash, no cyanosis. Psych: responds appropriately to questions, normal affect. Neuro: oriented x 3, CN2-12 intact grossly, motor intact, sensation intact. Vital Signs Reviewed: Yes Vital Signs Temp Pulse Resp BP Pulse Ox 07/27/18 20:43 98.1 F 97 H 18 128/84 97 Temperature: Afebrile Blood Pressure: Normal Pulse: Tachycardic Respiratory Rate: Normal Appearance: Positive for: Well-Appearing, Non-Toxic, Comfortable Pain Distress: None Mental Status: Positive for: Alert and Oriented X 3 Medical Decision Making ED Course and Treatment: 07/27/18 21:45 Impression: 48 year old male presents with tingling and neck pain. Plan: -- Tylenol -- Toradol -- X-ray C spine -- Reassess and disposition Prior Visits: Notes and results from previous visits were reviewed. Progress Notes: 07/27/18 22:02 patient reports improvement in his neck pain. 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 Will refer patient to ortho for left achilles injury. Patient is able to ambulate well with cane. - RAD Interpretation Narrative RAD Interpretations (Text): 07/27/18 21:56 c spine xr my read: diffuse DJD, no fracture Director Retirement: ED Physician - Scribe Statement The provider has reviewed the documentation as recorded by the Scribmaria c Zarate All medical record entries made by the Scribe were at my direction and personally dictated by me. I have reviewed the chart and agree that the record accurately reflects my personal performance of the history, physical exam, medical decision making, and the department course for this patient. I have also personally directed, reviewed, and agree with the discharge instructions and disposition. Disposition/Present on Arrival - Present on Arrival Any Indicators Present on Arrival: No History of DVT/PE: No History of Uncontrolled Diabetes: No Urinary Catheter: No History of Decub. Ulcer: No History Surgical Site Infection Following: None - Disposition Have Diagnosis and Disposition been Completed?: Yes Diagnosis: Cervical radiculopathy, Achilles tendinitis Disposition: HOME/ ROUTINE Disposition Time: 22:05 Patient Plan: Discharge Condition: STABLE Discharge Instructions (ExitCare): Achilles Tendinitis (ED), Radiculopathy (DC) Additional Instructions: follow up with the orthopedic surgeon for the achilles injury. follow up with your primary care doctor for further evaluation of the neck pain- you may need advanced imaging of your neck such as MRI. Prescriptions: Ibuprofen [Motrin Tab] 600 mg PO QID #42 tab Referrals: Augusto Vargas MD [Primary Care Provider] - Follow up with primary Ilya Weiss III, MD [Medical Doctor] - Follow up with primary Forms: [employer] ([place])
--- NOTE | 2018-07-28 09:47 | RAD ---
Date of service: 2018-07-27 21:39:02 PROCEDURE: Cervical Spine Radiographs. HISTORY: Pain. COMPARISON: None available. FINDINGS: BONES: Alignment maintained. No fracture. Dens Intact. DISC SPACES: Mild disc degeneration a multiple levels SOFT TISSUES: Normal. No prevertebral soft tissue swelling. OTHER FINDINGS: None. IMPRESSION: Mild degenerative changes
== END 2018-07-27 22:15 | disposition home or self-care (01) ==
LOC: ED 20:27
DX: M54.12 Radiculopathy, cervical region (principal); M76.62 Achilles tendinitis, left leg; I10 Essential (primary) hypertension; F17.210 Nicotine dependence, cigarettes, uncomplicated; J44.9 Chronic obstructive pulmonary disease, unspecified
CPT/HCPCS: 72050; 96372; 99284; J1885